=== PATIENT | male | born 2000 | race Caucasian/White ===

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

== ENCOUNTER 2022-09-27 12:22 | Emergency (ER) | payer BC, MEDICAID | END 2022-09-27 13:47 | disposition left against medical advice (07) | LOC: DL.ED 12:22 | DX: Z53.21 Procedure and treatment not carried out due to patient leaving prior to being seen by health care provider (principal) ==

== ENCOUNTER 2022-10-23 19:02 | Emergency (ER) | payer BC ==
[2022-10-23] MEDS ORDERED: Sodium Chloride 0.9% 1,000 ML IV ONE (19:56)
[2022-10-23] MEDS ORDERED: Sodium Chloride 0.9% 10 ML Syringe FLUSH PRN (19:56)
[2022-10-23] MEDS ORDERED: Acetaminophen 325 MG Tab PO ONE (19:57)
[2022-10-23 20:10] LABS: BASOPHILS PERCENT AUTO 0.3 % (0.0-1.0); EOSINOPHILS PERCENT AUTO 0.4 % (1.0-3.0); HEMATOCRIT 47.2 % (40.0-54.0); HEMOGLOBIN 16.5 g/dL (14.0-18.0); LYMPHOCYTES PERCENT AUTO 18.7 % (20.5-50.1); MEAN CORPUSCULAR HEMOGLOBIN 30.1 pg (27.0-34.0); MEAN CORPUSCULAR VOLUME 86.1 fL (80-100); NEUTROPHILS PERCENT AUTO 71.6 % (42.2-75.2); PLATELET COUNT,PLT 264 10^3/uL (150-450); RED BLOOD CELL COUNT 5.48 10^6/uL (4.6-6.2); WHITE BLOOD CELL COUNT,WBC 7.7 10^3/uL (5.0-10.0)
[2022-10-23 20:29] LABS: A/G RATIO 1.5; ANION GAP 15.3 mEq/L (7-13); BILIRUBIN TOTAL 0.6 mg/dL (0.2-1.0); BUN/CREATININE RATIO 16.8 (No establ ref range); CALCIUM 9.8 mg/dL (8.5-10.1); CREATININE 1.07 mg/dL (0.70-1.30); EST CRCL DRUG DOSING (CG) 91.66 mL/min; POTASSIUM,K 4.3 mmol/L (3.5-5.1); PROTEIN TOTAL,TP 8.4 g/dL (6.4-8.2)
[2022-10-23 21:47] VITALS: BP 142/89; PULSE 78
== END 2022-10-23 21:41 | disposition home or self-care (01) ==
LOC: DL.ED 19:02
DX: R55 Syncope and collapse (principal); F17.210 Nicotine dependence, cigarettes, uncomplicated
CPT/HCPCS: 36415; 70450; 80053; 85025; 93005; 96360; 99284; A9270; J7030; J3490

== ENCOUNTER 2023-06-17 18:41 | Emergency (ER) | payer SELFPAY ==
[2023-06-17 18:59] VITALS: BP 130/83; PULSE 83
[2023-06-17] MEDS: Lidocaine 1% 30 ML SDV INJECT ONE (19:16)
[2023-06-17] MEDS: Diphtheria,Pertussis(Acell),Tetanus Vaccine 0.5 ML Syringe IM ONE (19:42)
[2023-06-17] MEDS ORDERED: Bacitracin Oint 1 GM U/D Packet ONE (19:58)
== END 2023-06-17 20:04 | disposition home or self-care (01) ==
LOC: DL.ED 18:41
DX: S61.211A Laceration without foreign body of left index finger without damage to nail, initial encounter (principal); Z23 Encounter for immunization; W26.0XXA Contact with knife, initial encounter
CPT/HCPCS: 64450; 90471; 90715; 99282; 99282-25; J3490

== ENCOUNTER 2024-06-30 21:02 | Emergency (ER) | payer BC ==
[2024-06-30 21:36] VITALS: BP 145/79; PULSE 81
== END 2024-06-30 22:35 | disposition left against medical advice (07) ==
LOC: DL.ED 21:02
DX: Z53.21 Procedure and treatment not carried out due to patient leaving prior to being seen by health care provider (principal)